=== PATIENT | male | born 1980 | race Asian ===

== ENCOUNTER 2020-12-30 19:22 | Emergency (ER) | payer OTHER ==
[~2020-12-30] VITALS: Ht 182.9 cm; Wt 82.1 kg
[2020-12-30 22:40] VITALS: BP 114/75; TEMP 98.1
== END 2020-12-30 22:42 | disposition home or self-care (01) ==
LOC: ED 19:22
DX: J20.9 Acute bronchitis, unspecified (principal); F17.210 Nicotine dependence, cigarettes, uncomplicated
CPT/HCPCS: 87502; 87635; 87651; 99283; U0003